=== PATIENT | born 2005 | race Two or more races ===

== ENCOUNTER 2024-03-15 20:45 | Emergency (ER) | payer OTHER ==
[~2024-03-15] VITALS: Ht 170.2 cm; Wt 109.1 kg
[2024-03-15 19:55] VITALS: PULSE 118; RESP 18; O2SAT 98
[2024-03-15 20:49] VITALS: BP 134/86; TEMP 99.2; O2SAT 95
[2024-03-15] MEDS ORDERED: ALBU18HF12 IH (20:54)
[2024-03-15] MEDS: ALBUTEROL SULFATE 2.5 MG/0.5 ML NEB SOLUTION NEB ONE (21:30)
[2024-03-15] MEDS: IPRATROPIUM BROMIDE 0.5 MG/2.5 ML NEB SOLUTION NEB ONE (21:30)
[2024-03-15 21:35] VITALS: PULSE 119; RESP 18; O2SAT 95
[2024-03-15] MEDS: ALBUTEROL SULFATE HFA 90 MCG/PUFF 8 GM INHALER IH ONE (21:39)
[2024-03-15 21:40] VITALS: PULSE 119; RESP 18; O2SAT 95
[2024-03-15 21:55] VITALS: PULSE 121; RESP 20; O2SAT 100
[2024-03-15] MEDS ORDERED: PRED-554 PO (23:41)
== END 2024-03-15 23:48 | disposition home or self-care (01) ==
LOC: EMS 20:45 → EDSEX 20:45 → EMS 23:48
DX: J45.909 Unspecified asthma, uncomplicated (principal); E11.9 Type 2 diabetes mellitus without complications; Z91.013 Allergy to seafood
CPT/HCPCS: 99284; 94060; 94640; J3535